=== PATIENT | male | born 1960 | race Hispanic/Latino ===

== ENCOUNTER 2018-01-10 20:33 | Emergency (ER) | payer MEDICAID | END 2018-01-10 21:15 | disposition home or self-care (01) | LOC: EDH 20:33 | DX: K64.4 Residual hemorrhoidal skin tags (principal); I10 Essential (primary) hypertension; E78.5 Hyperlipidemia, unspecified; Z79.899 Other long term (current) drug therapy | CPT/HCPCS: 99282 ==